=== PATIENT | female | born 1980 | race Caucasian/White ===

== ENCOUNTER 2023-12-10 07:45 | Emergency (ER) | payer SELFPAY ==
[~2023-12-10] VITALS: Ht 162.6 cm; Wt 66.7 kg
--- NOTE | 2023-12-10 07:59 | NUR ---
BIB [facility]ILY FOR 7/10 INTERMITTENT SHARP ABD PAIN X 3 DAYS. PT TAKEN TO ER BED 4 AND CONNECTED TO MONITOR FOR ER MD MAY.
--- NOTE | 2023-12-10 08:06 | NUR ---
BLOOD DRAWN AND SENT TO LAB
--- NOTE | 2023-12-10 08:07 | NUR ---
UA collected and sent
--- NOTE | 2023-12-10 08:13 | NUR ---
ER AT BEDSIDE FOR EVAL
[2023-12-10] MEDS ORDERED: KETOROLAC TROMETHAMINE 15 MG/ML VIAL ONE (08:18)
[2023-12-10] MEDS: IV NS 0.9% 500 ML BAG IV ONE (08:25)
[2023-12-10 08:42] LABS: BASOPHILS % (AUTO) 0.6 % (0.0-2.0); EOSINOPHILS # (AUTO) 0.6 K/uL (0.0-0.7); EOSINOPHILS % (AUTO) 7.4 % (0.0-6.0); HEMATOCRIT 41 % (33-45); HEMOGLOBIN 13.6 g/dL (11.5-14.8); LYMPHOCYTES # (AUTO) 2.7 K/uL (0.8-4.8); LYMPHOCYTES % (AUTO) 35.9 % (20.0-44.0); MEAN CORPUSCULAR HEMOGLOBIN 29 PG (26.0-33.0); MEAN CORPUSCULAR HGB CONC 33 g/dl (31.0-36.0); MEAN CORPUSCULAR VOLUME 87 fL (82-100); MONOCYTES # (AUTO) 0.5 K/uL (0.1-1.30); MONOCYTES % (AUTO) 6.9 % (2.0-12.0); NEUTROPHILS # (AUTO) 3.7 K/uL (1.8-8.9); NEUTROPHILS % (AUTO) 49.2 % (43.0-81.0); PLATELET COUNT (AUTO) 194 K/uL (150-450); RED CELL DISTRIBUTION WIDTH 13.9 % (11.5-15.0); WHITE BLOOD COUNT (AUTO) 7.5 K/uL (4.3-11.0)
[2023-12-10 08:45] LABS: APPEARANCE,URINE CLEAR (CLEAR); BILIRUBIN,URINE NEGATIVE (NEGATIVE); BLOOD, URINE TRACE-INTA Ery/uL (NEGATIVE); COLOR,URINE YELLOW (YELLOW); KETONES,URINE NEGATIVE (NEGATIVE); LEUKOCYTE ESTERASE ,URINE NEGATIVE (NEGATIVE); NITRITE, URINE NEGATIVE (NEGATIVE); PROTEIN,URINE NEGATIVE (NEGATIVE); UGLUCOSE NEGATIVE (NEGATIVE); UROBILINOGEN,URINE 0.2 EU/dL (0.2)
[2023-12-10 08:48] LABS: CREATININE 0.8 mg/dL (0.6-1.3); POTASSIUM 3.7 mmol/L (3.5-5.1)
[2023-12-10 08:50] LABS: PREGNANCY TEST URINE QUAL NEGATIVE (NEGATIVE)
[2023-12-10] MEDS: KETOROLAC TROMETHAMINE 15 MG/ML VIAL IV ONE (08:55)
[2023-12-10 08:56] LABS: ADD URINE CULTURE NO; BACTERIA,URINE Few /HPF (None Seen); RBC,URINE 0-2 /HPF (0-2); SQUAMOUS EPITHELIAL CELL,UR Many /HPF (None Seen); WBC,URINE NONE SEEN /HPF (0-3)
--- NOTE | 2023-12-10 08:58 | NUR ---
U/S TECH AT BEDSIDE
[2023-12-10 09:58] VITALS: BP 138/76; TEMP 98.6; O2SAT 99
--- NOTE | 2023-12-10 10:01 | NUR ---
IV removed. Catheter intact and site benign. Pressure and 4x4 applied to site. No bleeding noted.Patient discharged to home in stable condition. Written and verbal after care instructions given. Patient verbalizes understanding of instruction.
== END 2023-12-10 10:01 | disposition home or self-care (01) ==
LOC: ER 07:54
DX: D25.9 Leiomyoma of uterus, unspecified (principal); N91.1 Secondary amenorrhea; R10.814 Left lower quadrant abdominal tenderness; R10.2 Pelvic and perineal pain; F17.200 Nicotine dependence, unspecified, uncomplicated; Z87.42 Personal history of other diseases of the female genital tract
CPT/HCPCS: 99285; 96374; 76856; 96361; 85025; 80048; 84703; 81001; 36415; J7040; A4223; J1885